=== PATIENT | female | born 1995 | race Caucasian/White ===

== ENCOUNTER 2018-05-19 19:03 | Emergency (ER) | payer OTHER ==
[~2018-05-19] VITALS: Ht 154.9 cm; Wt 76.6 kg
[2018-05-19 20:40] LABS: HEMATOCRIT 39.2 % (36.0-46.0); HEMOGLOBIN 13.2 G/DL (11.9-15.5); MCH 29.1 PG (29.0-34.0); MCHC 33.7 G/DL (30.0-36.0); MCV 86.5 FL (83-99); PLATELET COUNT 227 K/uL (156-360); RBC DIS.WIDTH-CV 12.9 % (11.8-14.6); RBC DIS.WIDTH-SD 40.8 % (39-53); RED BLOOD COUNT 4.53 M/uL (3.80-5.20); WHITE BLOOD COUNT 7.2 K/uL (4.1-10.2)
[2018-05-19 20:59] LABS: ALBUMIN 4.4 g/dL (3.2-4.8); CHLORIDE 106 mEq/L (99-109); POTASSIUM 3.5 mEq/L (3.7-5.4)
[2018-05-19 21:00] LABS: SODIUM 140 mEq/L (136-147)
[2018-05-19 21:02] LABS: GLUCOSE 132 mg/dL (70-99); QUANTITATIVE HCG < 4.0 MIU/ML; TOTAL PROTEIN 7.6 g/dL (6.4-8.3)
[2018-05-19 21:04] LABS: TOTAL BILIRUBIN 0.5 mg/dL (0.0-1.0)
[2018-05-19 21:05] LABS: ALKALINE PHOSPHATASE 64 IU/L (3-129); SERUM ETHYL ALCOHOL < 10 mg/dL
[2018-05-19 21:06] LABS: CREATININE 0.9 mg/dL (0.6-1.3)
[2018-05-19 21:07] LABS: AST (GOT) 18 IU/L (2-34); UREA NITROGEN (BUN) 16 mg/dL (9-23)
[2018-05-19 21:08] LABS: ALT (GPT) 20 IU/L (3-49)
[2018-05-19 21:18] LABS: GFR ESTIMATE (CALCULATED) > 59 mL/min/
[2018-05-19 22:04] VITALS: BP 137/85
== END 2018-05-19 22:04 | disposition home or self-care (01) ==
LOC: EME 19:03
PROVIDERS: Emergency Medicine
DX: F32.9 Major depressive disorder, single episode, unspecified (principal); F43.0 Acute stress reaction; J45.909 Unspecified asthma, uncomplicated
CPT/HCPCS: 80053; 81003; 84702; 85027; 90839; 99281; 99284; G0480